=== PATIENT | female | born 1950 | race Caucasian/White ===

== ENCOUNTER 2024-11-19 13:02 | Outpatient (REF) | payer MEDICARE, OTHER, SELFPAY ==
--- OUTSIDE RECORDS SUMMARY | 2024-11-19 14:09 | XMS_ITS ---
Continuity of Care Document (CCD) Created on: November 19, 2024 Kaila Bruce External Reference #: [id number] : 1950 Sex: Female Author Organization [facility] Address [address] [place] [address] Phone [phone] Care Team Providers Care Motorcycle Engine Assembler Name Role Phone Samy Robles M.D. Care Team Information Recei melany [phone] Problems Active Problems Provider Date Thyroid nodule Leighton Ratliff M.D. Onset: Essential hypertension Leighton Ratliff M.D. Ons et: 09/22/2022 Osteoarthritis Leighton Ratliff M.D. Onset: Social History Type Date Description Comments Sex Female Sex Unknown Tobacco Use Start: Unknown Never Smoked Cigarettes ETOH Use Occasionally consumes alcoho l Allergies and adverse reactions Active Allergies Criticality Reaction Severity Comments Date Percocet Unable to assess criticality 09/22/2022 Medications Active Medications SIG Qnty Indications Ordering Provider Date Gfzclghqvpqhphamsgh44 mg Tablets Take 1 Tablet By Mouth Every Day Unknown Bromfenac Sodium (Once-Daily)0.09% Solution Instill 1 Drop In Right Eye Every Day To Surgical Eye X 6 Weeks Postoperatively. Juno Sevilla M.D. Vital Signs Date Vital Result Comment 09/22/2022 2:45pm BP Systolic 122 mmHg BP Diastolic 90 mmHg Heart Rate 81 /min Height 64 inches 5'4 Weight 115.00 lb BMI (Body Mass Index) 19.7 kg/m2 Medical Devices Description No Information Available Encounters Type Date Location Provider Dx Diagnosis Office Visit 09/22/2022 2:45p Main Office Leighton Ratliff M.D. I10 Essential (primary) hypertension E04.1 Nontoxic single thyr oid nodule Assessments Date Code Description Provider 09/22/2022 I10 Essential hypertension Leighton Ratliff M.D. 09/22/2022 E04.1 Thyroid nodule Leighton sanabria M.D. Plan of Treatment No Information Available Functional Status Description No Information Available Mental Status Description No Information Available Referrals Description No Information Available
--- OUTSIDE RECORDS SUMMARY | 2024-11-19 14:09 | XMS_ITS | Encounter Summary ---
Author Organization [facility] Address [address] [place] [address] Phone Care Team Providers Care Drugless Physician Name Role Phone Samy Robles MD Primary Care Provider + [phone] Encounter Details Date Type Department Care Team (Late st Contact Info) Description 02/18/2017 Ancillary Orders Virtual Department [address] [place] [address] Harmony Wiseman MD [address] [address] Visit for screening mammogram Social History Tobacco Use Types Packs/Day Years Used Date Smoking Tobacco: Never Comments Unknown Sex and Gender Information Value Date Recorded Sex Assigned at Female 05/12/2022 10:32 AM EST Legal Sex Female 5:14 PM EST Gender Identity Female 05/12/2022 10:32 AM EST Sexual Orientation Not on file documented as of this encounter Plan of Treatment Upcoming Encounters Date Type Department Care Team (Late st Contact Info) Description 06/18/2025 11:40 AM EST Office Visit [facility] [address] [place] [address] Lacy Sanchez MD [address] [address] documented as of this encounter Results * BI MAMMOGRAM SCREENING WITH TOMOSYNTHESIS WITH CAD (BILATERAL) (05/05/2017 11:43 AM EST) Anatomical Region Laterality Modality Breast Left, Breast Right, Breast Bilateral Bila teral Mammography 05/05/2017 11:4 8 AM EST Impressions 05/05/2017 11:52 AM EST Stable appearance relative to prior imaging. No findings suggestive of malignancy are seen. BI-RADS CATEGORY: 2 - Benign finding. DENSITY: There are scattered fibroglandular densities. POS - [id number] Narrative 05/05/2017 11:52 AM EST Full-field digital mammography is obtained with computer-aided detection. Comparison with prior imaging from 03/14/2016 is made with older imaging dating back as far as 01/10/2009 also reviewed. There is scattered fibroglandular density evident in the breasts. In addition to 2-D C view imaging, tomosynthesis images are obtained in two projections of each breast. There are solitary macrocalcifications in each breast which are unchanged.. No dominant soft tissue mass of concern, suspicious cluster of calcifications, significant interval skin changes, or architectural distortion is identified. Procedure Note Aureliano Barboza MD - 05/05/2017 Full-field digital mammography is obtained with computer-aided detection.Comparison with prior imaging from 03/14/2016 is made with older imagingdating back as far as 01/10/2009 also reviewed. There is scattered fibroglandular density evident in the breasts. Inaddition to 2-D C view imaging, tomosynthesis images are obtained in twoprojections of each breast. There are solitary macrocalcifications in each breast which areunchanged.. No dominant soft tissue mass of concern, suspicious clusterof calcifications, significant interval skin changes, or architecturaldistortion is identified. IMPRESSION: Stable appearance relative to prior imaging. No findings suggestive ofmalignancy are seen. BI-RADS CATEGORY: 2 - Benign finding. DENSITY: There are scattered fibroglandular densities. POS - [id number] Harmony Wiseman MD IM MG EXAMS Final Result documented in this encounter Visit Diagnoses Diagnosis Visit for screening mammogram Visit for screening mammogram documented in this encounter Care Teams Drugless Physician Relationship Specialty Start Date End Date Samy Robles MD [address] [place] [address] PCP - General 10/29/13 documented as of this encounter Additional Source Comments The information contained in this document represents components of the legal health record. It is not the complete legal health record.[facility]
--- OUTSIDE RECORDS SUMMARY | 2024-11-19 14:09 | XMS_ITS | Clinical Summary ---
Author Organization [facility] Address [address] [place] [address] Care Team Providers Care Machine Long Goods Helper Name Role Phone Unavailable Primary Care Provider Unavailabl e Medications hydroCHLOROthiaz kortney 25 MG tablet TAKE 1 TABLET (25 MG TOTAL) BY MOUTH 1 (ONE) TIME EACH DAY 90 tablet 3 01/09/2022 Active Family History Medical History Relation Comments Diabetes Father Cancer Mother breast cancer Hypertension Mother Kidney disease Mother sister - dialysi s Diabetes Sibling 1 brother Heart disease Sibling 2 2 brothers - [place] Relation Status Comments Father Mother Sibling 1 Sibling 2 Social History Tobacco Use Types Packs/Day Years Used Date Smoking Tobacco: Never Alcohol Use Standard Drinks/Week Comments Yes 0 (1 standard drink = 0.6 oz pure alcohol) Alcoholic Drinks/day: Occasional social drink Comments Unknown Sex and Gender Information Value Date Recorded Sex Assigned at Not on file Legal Sex Female 5:12 PM EST Gender Identity Not on file Sexual Orientation Not on file Plan of Treatment Health Maintenance Due Date Last Done Comments Breast Cancer Screening 1950 Colorectal Cancer Screening: Annual FOBT 2001 Colorectal Cancer Screening: Colonoscopy 2001 Colorectal Cancer Screening: Sigmoidoscopy 2001 Pneumococcal Vaccine: 50+ Ye ars (1 of 1 - PCV) 2002 Influenza Vaccine (#1) 2024 Hepatitis B Vaccine Aged Out No longe r eligible based on patient's age to complete this topic
== END 2024-11-19 13:03 | disposition home or self-care (01) ==
LOC: HO.SH 13:02
PROVIDERS: Visit Provider Internal Medicine
DX: Z01.118 Encounter for examination of ears and hearing with other abnormal findings (principal); H90.3 Sensorineural hearing loss, bilateral
CPT/HCPCS: 92557; 92567

== ENCOUNTER 2025-03-21 14:23 | Outpatient (REF) | payer MEDICARE, OTHER, SELFPAY ==
[2025-03-21 18:44] LABS: Appearance Urine Clear; Glucose Urine UA Negative (Negative); PH 7.0 (5.0-9.0); Specific Gravity - Urine 1.015 (1.005-1.025)
== END 2025-03-21 14:24 | disposition home or self-care (01) ==
LOC: HO.WFDLDS 14:23
PROVIDERS: Visit Provider Internal Medicine
DX: Z00.00 Encounter for general adult medical examination without abnormal findings (principal); R35.1 Nocturia; I10 Essential (primary) hypertension; M81.0 Age-related osteoporosis without current pathological fracture; E04.1 Nontoxic single thyroid nodule
CPT/HCPCS: 81003; 87086; 96127; 99387

== ENCOUNTER 2025-03-21 14:23 | Outpatient (AMB) | payer MEDICARE, OTHER, SELFPAY ==
--- NOTE | 2025-03-21 14:41 | A.OFFPC_ITS ---
Vital Signs 03/21/25 14:48 Height 5 ft 2.2 in Weight 116 lb 8 oz BMI 21.2 BP 122/84 Blood Pressure Location Lt brachial Position Sitting Respiration 14 Pulse 79 Pulse Source Pulse Oximeter Pulse Oximetry (%) 98 Oxygen Delivery Method Room Air Intake Visit Reasons: CPE requesting Allergies acetaminophen (From Percocet) Allergy (Severe, Verified 03/21/25 14:45) Hallucinations oxycodone (From Percocet) Allergy (Severe, Verified 03/21/25 14:45) Hallucinations Tobacco use date assessed: 03/21/25 Fall risk assessment: No Falls in past year Last assessed Fall Risk: 03/21/25 Dental Screening Dental Screen Date: 03/21/25 Did you have a dental visit in the last 12 months?: Yes Did you have a dental problem in the last 6 months where you did not have access to dental care?: No Was dental information given to patient?: Patient has dentist HPI HPI Comments History of Present Illness Details The patient is a 74 year old female with a past medical history of hypertension, thyroid nodule, insomnia, hemmorhoids, rectocele, osteoporosis rpesenting to establish care/physical exam. Transfer from [facility]. Last CPE 12/2023 CV: on hctz. saw pvc previously, Dr Lockhart. Had 2023 coronary calcium. Underwent cardiac testing which reassuring b/c of family history Endocrine: Follows with Dr Sanchez for thyroid and osteoporosis. Reports increased urination, especially nocturia. REcent uti without dysuria. MSK Bilateral hip replacement right 2022, left 2005 Osteoporosis-on actonel 35 mg weekly History of melanoma 2022-[facility]. Bilateral cataracts-Dr Shannen Dominguez/[facility] Mammo 12/2023-biopsy benign. Repeated in December 2024. Follows with [facility] breast. s/p hysterectomy Flu shot ROS see HPI PHYSICAL EXAM: GENERAL: Alert and oriented x 3. NAD EYES: EOMI. Anicteric. HENT: Moist mucous membranes. No scleral icterus. No cervical lymphadenopathy. LUNGS: Clear to auscultation bilaterally. CARDIOVASCULAR: Regular rate and rhythm. No murmur. No JVD. ABDOMEN: Soft, non-tender +bs EXTREMITIES: No edema. Non-tender. SKIN: No rashes or lesions. Warm. NEUROLOGIC: No focal neurological deficits. CN II-XII grossly intact PSYCHIATRIC: Cooperative. Appropriate mood and affect PFSH Family History Other Bilateral cataracts H/O: hysterectomy History of appendectomy History of right hip replacement History of total left hip replacement Social History Housing: House e-Cigarette/Vaping Use: Never Used Second Hand Smoke Exposure: No service: No Current occupational status: employed and retired Cognitive needs: No Hearing needs: No Vision needs: Yes (glasses) Questionnaire PHQ-9 Over the last 2 weeks, how often have you been bothered by any of the following problems? 1. Little interest or pleasure in doing things: not at all 2. Feeling down, depressed, or hopeless: not at all 3. Trouble falling or staying asleep, or sleeping too much: not at all 4. Feeling tired or having little energy: not at all 5. Poor appetite or overeating: not at all 6. Feeling bad about yourself - or that you are a failure or have let yourself or your family down: not at all 7. Trouble concentrating on things, such as reading the newspaper or watching television: not at all 8. Moving or speaking so slowly that other people could have noticed. Or the opposite - being so fidgety or restless that you have been moving around a lot more than usual: not at all 9. Thoughts that you would be better off or of hurting yourself in some way: not at all Total score: 0 Depression Screening Interpretation: Negative Depression Screening Done: Yes 78387 - PHQ-9 Billing: Yes Source: Developed by Drs. Clint Cox, Concha Manriquez, Larry Thompson and colleagues, with an educational kaz from [employer]. Thrive Questionnaire Date Thrive assessed: 03/15/25 I am a: Patient What is your living situation today?: I have a steady place to live Within the past 12 months, did the food you bought not last and you didn't have the money to get more?: Never true Within the past 12 months, did you worry whether your food would run out before you got money to buy more?: Never true Do you have trouble paying for medicines?: No Do you have trouble getting transportation to medical appointments?: No Do you have trouble paying your heating and electricity bill?: No Do you have trouble taking care of your child, family member or friend?: No Do you have trouble with day-to-day activities such as bathing, preparing meals, shopping, managing finances, etc.?: No Are you currently unemployed and looking for a job?: No Are you interested in more education?: No Please select the resources that you would like help with: None Currently or been in a relationship where the following occur: No concerns reported THRIVE Score: 0 AUDIT C Alcohol Use Questionnaire (AUDIT-C) 1. How often do you have a drink containing alcohol?: 2-3 times a week 2. How many drinks containing alcohol do you have on a typical day when you are drinking?: 1 or 2 3. How often do you have six or more drinks on one occasion?: Never Total Score: 3 KYLAH-7 AMB Questionnaire KYLAH-7 Feeling nervous, anxious, or on edge: 0 = Not at all Not being able to stop or control worryin = Not at all Worrying too much about different things: 0 = Not at all Trouble relaxin = Not at all Being so restless that it is hard to sit still: 0 = Not at all Becoming easily annoyed or irritable: 0 = Not at all Feeling afraid as if something awful might happen: 0 = Not at all Total KYLAH-7 score (0-4 normal; 5-9 mild; 10-14 moderate; 15-21 severe): 0 Source: Developed by Drs. Clint Cox, Concha Manriquez, Larry Thompson and colleagues, with an educational kaz from [employer]. Physical exam (Primary Care) Vital Signs: Last Vital Signs Pulse 79 03/21/25 14:48 Resp 14 03/21/25 14:48 BP 122/84 03/21/25 14:48 Pulse Ox 98 03/21/25 14:48 Oxygen Delivery Method Room Air 03/21/25 14:48 BMI result Body Mass Index 21.2 Tobacco/Smoking Status: Tobacco use Status Tobacco use date assessed 03/21/25 03/21/25 14:51 e-Cigarette/Vaping Use Never Used 03/21/25 14:51 PHQ-9: PHQ-9 Score PHQ-9: Total score 0 03/21/25 15:04 Depression Screening Interpretation: Negative Thrive Assessment: Date of Thrive Assessment Date Thrive assessed 03/15/25 03/21/25 14:43 Currently or been in a relationship where the following occur: No concerns reported Coding Level of Care Code New Pt Prev Care >65yr (27213) Diagnoses Physical exam Z00.00 Thyroid nodule E04.1 Hypertension, unspecified type I10 Hypertension type: unspecified Additional Codes PHQ-9 - 66758 - PHQ-9 Billing: Yes ([id number]) Assessment & Plan Assessment & Plan (1) Physical exam: Code(s): Z00.00 - Encounter for general adult medical examination without abnormal findings (2) Thyroid nodule: Code(s): E04.1 - Nontoxic single thyroid nodule Category: Medical (3) Hypertension: Code(s): I10 - Essential (primary) hypertension Category: Medical Qualifiers: Hypertension type: unspecified Qualified Code(s): I10 - Essential (primary) hypertension Plan 74 year old female presenting to [facility] care/CPE Past medical surgical, social reviewed Preventive measures for age discussed HTN-controlled on hctz Osteoporosis-on fosamax Nocturia, polyuria-check ua/ucx. referral urogyn Orders: Orders Urine Culture 03/21/25 R35.1 - Nocturia UA and rflx microscopic 03/21/25 R35.1 - Nocturia Referrals Urogynecology Referral R35.1 - Nocturia
--- OUTSIDE RECORDS SUMMARY | 2025-03-21 14:47 | XMS_ITS | Encounter Summary ---
Author Organization [facility] Address [facility] [address] [place] [address] Phone Care Team Providers Care Talent Sourcing Specialist Name Role Phone Samy Robles MD Primary Care Provider [phone] Encounter Details Date Type Department Care Team ([facility] st Contact Info) Description 12/07/2022 Transcribe Orders [facility] [address] [facility] [address], [address] [place] [address] Mohamud Luong MD [address] [address] [email or web address] Social History Tobacco Use Types Packs/Day Years Used Date Smoking Tobacco: Never Smokeless Tobacco: Never Alcohol Use Standard Drinks/Week Comments Yes 5 (1 standard drink = 0.6 oz pur e alcohol) Education Answer Date Recorded Are you interested in more education? Not on amelia e 08/26/2022 Are you concerned about learning? Not on file 08/26/2022 No 08/26/2022 No 08/26/2022 Digital Access Answer Date Recorded No 09/23/2022 No 09/23/2022 Reliable internet access at home? Not on file 09/23/2022 Device with a working camera? Not on file Comments No Sex and Gender Information Value Date Recorded Sex Assigned at Female 05/12/2022 10:32 AM EST Legal Sex Female 5:14 PM EST Gender Identity Female 05/12/2022 10:32 AM EST Sexual Orientation Not on file documented as of this encounter Plan of Treatment Upcoming Encounters Date Type Department Care Team (Late st Contact Info) Description 06/18/2025 11:40 AM EST Office Visit [facility] [address] [place] [address] Lacy Sanchez MD [address] [address] [email or web address] documented as of this encounter Visit Diagnoses Not on filedocumented in this encounter Care Teams Talent Sourcing Specialist Relationship Specialty Start Date End Date Samy Robles MD [address] [place] [address] PCP - General 10/29/13 documented as of this encounter Additional Source Comments The information contained in this document represents components of the legal health record. It is not the complete legal health record.[facility]
--- OUTSIDE RECORDS SUMMARY | 2025-03-21 14:47 | XMS_ITS | Encounter Summary ---
Author Organization [facility] Address [address] [place] [address] [place] [address] Phone Care Team Providers Care Vehicle Care Specialist Name Role Phone Samy Robles MD Primary Care Provider + [phone] Reason for Referral * MRI/CAT Scan - Closed Specialty Diagnoses / Procedures Referred By Lissette paniagua Referred To Contact Radiology Diagnoses Pre-op evaluation Procedures NC Stress Result for Nuclear Stress Test Ria Pink CNP Phone: tel: fax: [email or web address] Referral ID Status Reason Start Date Expiration Date Visits Re quested Visits Authorized [id number] Closed 01/11/2023 1 1 Encounter Details Date Type Department Care Team ([facility] st Contact Info) Description 01/11/2023 Ancillary Orders Non-Invasive Cardiology [address] [place] [address] Ria Pink CNP [address] [address] [email or web address] Pre-op evaluation Social History Tobacco Use Types Packs/Day Years [...] 11:40 AM EST Office Visit [facility] [address] [place] [address] Lacy Sanchez MD [address] [place] [address] [email or web address] documented as of this encounter Results * NC Stress Result for Nuclear Stress Test (01/11/2023 11:21 AM EDT) Max BP Systolic 180 mmHg [facility] Max BP Diastolic 80 mmHg [facility] Max HR 155 BPM [facility] Resting HR 67 BPM [facility] Resting BP Systolic 140 mmHg [facility] Resting BP Diastolic 80 mmHg [facility] Peak METS 13.4 METS [facility] Peak HR 153 BPM [facility] Peak BP Systolic 150 mmHg [facility] Peak BP Diastolic 70 mmHg [facility] Anatomical Region Laterality Modality Heart Other 01/11/2023 10:2 8 AM EDT 01/11/2023 11:19 AM EDT Narrative 01/11/2023 11:45 AM EDT Response to Stress The patient exercised for minutes seconds, achieving 13.4 METS at peak exercise. Baseline blood pressure was 140/80 mmHg, and baseline heart rate was 67 bpm. Peak blood pressure was 150/70 mmHg. The patient achieved a peak heart rate of 153 bpm, which is% of their maximum predicted heart rate. Rate pressure product was [address]. REPORT - Pt exercised for 11:35 min on a ROMA protocol achieving 13.4 METS. Test terminated due to fatigue. Baseline resting HR was 63. Max heart rate achieved was 155 (103% MPHR). 1. EKG - Baseline EKG showed normal sinus rhythm, 1st degree AV block, RBBB. No ischemic EKG changes noted during exercise. 2. SYMPTOMS - no chest pain 3. EXERCISE PHYSIOLOGY - normal BP response to exercise. Excellent functional capacity for age. 4. ARRHYTHMIAS - occasional PVCs Conclusion - normal stress test with no ischemic EKG changes and no chest pain reported. Nuclear images pending and will be reported separately. See attached stress report for full details. Kingston Roblero NP . Ria Pink COMPENSATION ANALYST CV NM CARDIAC Final Resul t documented in this encounter Visit Diagnoses Diagnosis Pre-op evaluation Pre-op evaluation documented in this encounter Care Teams Vehicle Care Specialist Relationship Specialty Start Date End Date Samy Robles MD [address] [place] [address] PCP - General 10/29/13 documented as of this encounter Additional Source Comments The information contained in this document represents components of the legal health record. It is not the complete legal health record.[facility]
--- OUTSIDE RECORDS SUMMARY | 2025-03-21 14:47 | XMS_ITS | Encounter Summary ---
Author Organization [facility] Address [facility] [address] [place] [address] Phone Care Team Providers Care Aluminum Siding Installer Name Role Phone Samy Robles MD Primary Care Provider + [phone] Encounter Details Date Type Department Care Team (Late st Contact Info) Description 01/16/2023 Procedure Pass [facility] PERIOPERATIVE DEPT [address] [place] [address] Social History Tobacco Use Types Packs/Day Years Used Date Smoking Tobacco: Never Passive Smoke Exposure: Never Smokeless Tobacco: Never Alcohol Use Standard [...] with a working camera? Not on file Intimate Partner Violence Answer Date R ecorded Are you denied basic needs s uch as food, clothing, or medical care? No 01/16/2023 In the past 12 months have y ou been in a relationship with a person who hurts, threatens, or tries to control you? No 01/16/2023 Are you denied basic needs s uch as food, clothing, or medical care? No 01/16/2023 In the past 12 months have y ou been in a relationship with a person who hurts, threatens, or tries to control you? No 01/16/2023 Comments No Sex and Gender Information Value Date Recorded Sex Assigned at Female 05/12/2022 10:32 AM EST Legal Sex Female 5:14 PM EST Gender Identity Female 05/12/2022 10:32 AM EST Sexual Orientation Not on file documented as of this encounter Functional Status * Calculated C-SSRS Risk Score (Lifetime/Recent) Answer Date of Assessment Author No Risk Indicated 01/16/2023 8:18 PM EDT Tereza Beach i, RN * [place] Suicide Severity Rating Scale (Screener/Recent Self-Report) Question Answer Date of Assessment Author 1. Wish to be (Past 1 Month) No 023 8:18 PM EDT Tereza Lowe RN 2. Non-Specific Active Suici maddie Thoughts (Past 1 Month) No 01/16/2023 8:18 PM EDT Josh Lowe RN 6. Suicidal Behavior (Lifetime) No 8:18 PM EDT Tereza Lowe RN documented as of this encounter Plan of Treatment Upcoming Encounters Date Type Department Care Team (Late st Contact Info) Description 06/18/2025 11:40 AM EST Office Visit [facility] [address] [place] [address] Lacy Sanchez MD [address] [place] [address] [email or web address] documented as of this encounter Visit Diagnoses Not on filedocumented in this encounter Care Teams Aluminum Siding Installer Relationship Specialty Start Date End Date Samy Robles MD [address] [place] [address] PCP - General 10/29/13 documented as of this encounter Additional Source Comments The information contained in this document represents components of the legal health record. It is not the complete legal health record.[facility]
--- OUTSIDE RECORDS SUMMARY | 2025-03-21 14:47 | XMS_ITS | Clinical Summary ---
Author Organization [facility] Facility Address [address] [place] [address] Care Team Providers Care Slab Conditioner Supervisor Name Role Phone Unavailable Primary Care Provider [...] Heart disease Sibling 2 2 brothers - [place] Relation Status Comments Father Mother Sibling 1 [...]
--- OUTSIDE RECORDS SUMMARY | 2025-03-21 14:47 | XMS_ITS | Encounter Summary ---
Author Organization [facility] Address [address] [place] [address] Phone Care Team Providers Care Grinder Machine Knife Setter Name Role Phone Samy Robles MD Primary Care Provider + [phone] Encounter Details Date Type Department Care Team (Late st Contact Info) Description 01/16/2023 Ancillary Orders [facility] Department of Orthopaedic Surgery, Arthroplasty Service [address] [facility], 3rd Floor, [address] [place] [address] Mohamud Luong MD [address] [address] [email or web address] Pain Social History Tobacco Use Types Packs/Day Years [...] PM EDT Tereza Beach i, RN * [place] Suicide Severity Rating Scale (Screener/Recent Self-Report) Question Answer Date of Assessment Author 1. Wish to be (Past 1 Month) No 023 8:18 PM EDT Tereza Lowe RN 2. Non-Specific Active Suici maddie Thoughts (Past 1 Month) No 01/16/2023 8:18 PM EDT Josh Lowe RN 6. Suicidal Behavior (Lifetime) No 3 8:18 PM EDT Tereza Lowe RN documented as of this encounter Plan of Treatment Upcoming Encounters Date Type Department Care Team (Late st Contact Info) Description 06/18/2025 11:40 AM EST Office Visit [facility] [address] [place] [address] Lacy Sanchez MD [address] [place] [address] [email or web address] documented as of this encounter Results * XR HIP 1 VW RIGHT (01/16/2023 2:46 PM EDT) Anatomical Region Laterality Modality Hip Right Radiographic Nikki ging 01/16/2023 2:50 PM EDT Impressions 01/16/2023 2:51 PM EDT Status post right total hip arthroplasty. No distal fracture on single view. Narrative 01/16/2023 2:51 PM EDT XR HIP 1 VW RIGHT COMPARISON: XR HIP 2 VW RIGHT PLUS PELVIS FINDINGS: Patient is postoperative status post right total hip arthroplasty, with noncemented femoral component and at least one supplemented acetabular fixation screw. No distal fracture on single view. Expected postoperative soft tissue gas. Remaining pelvis is partially obscured and unchanged. Procedure Note Mikel Rojas MD - 01/16/2023 XR HIP 1 VW RIGHT COMPARISON: XR HIP 2 VW RIGHT PLUS PELVIS FINDINGS: Patient is postoperative status post right total hip arthroplasty, withnoncemented femoral component and at least one supplemented acetabularfixation screw. No distal fracture on single view. Expected postoperativesoft tissue gas. Remaining pelvis is partially obscured and unchanged. IMPRESSION: Status post right total hip arthroplasty. No distal fracture on singleview. Mohamud Luong MD IMG XR PELVIS Final Resul t documented in this encounter Visit Diagnoses Diagnosis Pain Generalized pain documented in this encounter Care Teams Grinder Machine Knife Setter Relationship Specialty Start Date End Date Samy Robles MD [address] [place] [address] PCP - General 10/29/13 documented as of this encounter Additional Source Comments The information contained in this document represents components of the legal health record. It is not the complete legal health record.[facility]
--- OUTSIDE RECORDS SUMMARY | 2025-03-21 14:47 | XMS_ITS | Clinical Summary ---
Author Organization [facility] Address Critical access hospital [employer] [facility] [address] [place] [address] Phone Care Team Providers Care Speed Winder Name Role Phone Samy Robles MD Primary Care Provider [phone] Allergies Active Allergy Reactions Criticality Noted Date Comments Percocet (Oxycodone-Acetaminophen) 0 01/01/2006 Medications hydroCHLOROthiazi de (HYDRODIURIL) 25 MG tablet Take 25 mg by mouth daily. 2 Active diphenhydrAMINE-a cetaminophen (TYLENOL PM) 25-500 mg Tab Active zolpidem (AMBIEN) 5 MG tablet Take 5 mg by mouth. Active calcium carbonate-vitamin D3 1,250 mg (500 mg elemental)-400 units per tablet Take 1 tablet by mouth daily. Active amoxicillin (AMOXIL) 500 MG capsule Take 4 capsules (2,000 mg total) by mouth once as needed. Take 4 capsules one hour prior to any dental work or procedures. 12 capsule 3 Active risedronate (ACTONEL) 35 MG tabletIndications :Age-related osteoporosis without current pathological fracture TAKE 1 TAB EVERY 7 DAYS. WITH WATER ON EMPTY STOMACH, NOTHING BY MOUTH OR LIE DOWN FOR NEXT 30 MINS. 12 tablet 1 5 Active Active Problems Problem Noted Date Diagnosed Date History of melanoma 12/26/2023 Hyperlipidemia 12/26/2023 S/P total right hip arthroplasty 01/16/2023 Primary hypertension 09/22/2022 Osteoarthritis of hip 05/10/2012 Overview (06/21/2014): Osteoarthritis of hip History of total hip replacement 05/10/2012 Overview (06/21/2014): Total replacement of hip Osteoporosis Assessment & Plan (12/26/2023 5:41 PM EDT): 73 y.o. post-menopausal woman w/ osteoporosis on bone density. Hx traumatic hand fracture, father w/ hx hip fracture. Getting reasonable calcium intake through diet/supplement. Last vitamin D level was @ target. She is quite active & not at high risk for falls. Reviewed normal bone physiology across the lifespan. Reviewed role of adequate calcium & vitamin D, weight-bearing exercise, avoiding falls and pharmacologic rx with risks/benefits. Advised her to refer to UpToDate patient information @ calcium & vitamin D & prevention and treatment of osteoporosis, beyond the basics for additional information. 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 She is a candidate for pharmacologic rx. She would be interested in resuming actonel, which she had been on in the past & tolerated. Will check labs. Assuming all ok, will send in rx for actonel. Thyroid cyst Assessment & Plan (12/26/2023 5:42 PM EDT): Discussed cysts are typically benign, do not require FNA. Will obtain/review most recent thyroid ultrasound. Immunizations Immunization Administration Dates Next Due Influenza High-Dose Quadriva lent Preservative Free IM 01/17/2023(Deferred: Patient Refused) Family History Medical History Relation Comments CV disease Brother 1 At age 50, he swartz d quintuple bypass after sudden heart attack. CV disease Brother 2 Had a heart gisel ck around age 63 yrs Diabetes Brother 3 Adult onset Breast cancer Cousin 1 maternal Breast cancer Cousin 2 maternal Clotting disorder Father He had too msn y white(?) blood cells and would bleed profusely if cut. It was not a problem until he was in his 80s Diabetes Father Adult onset Hip fracture Father age 92 Parkinson's disease Father Breast cancer Maternal Aunt Breast cancer Mother Cancer Mother of breast c ancer at age 48 yrs in 1974 Relation Status Comments Brother 1 Brother 2 Brother 3 Cousin 1 Cousin 2 Father Maternal Aunt Mother Social History Tobacco Use Types Packs/Day Years Used Date Smoking Tobacco: Never Passive Smoke Exposure: Never Smokeless Tobacco: Never Tobacco Cessation:Counseling Given: Not Answered Alcohol Use Standard Drinks/Week Comments Yes 5 [...] AM EST Sexual Orientation Not on file Last Filed Vital Signs Vital Sign Reading Time Taken Comments Blood Pressure 130/64 12/26/2023 11:27 AM EDT Pulse 75 12/26/2023 11:27 AM EDT Temperature 36.2 C (97.2 F) 12/26/2023 11:27 AM EDT Respiratory Rate 13 12/26/2023 11:27 AM EDT Oxygen Saturation 98% 12/26/2023 11:27 AM EDT Inhaled Oxygen Concentration - - Weight 54.5 kg (120 lb 3.2 oz) 12/26/2023 11:27 AM EDT Height 164.5 cm (5' 4.75 ) 12/26/2023 11:27 AM E DT Body Mass Index 20.16 12/26/2023 11:27 AM EDT Plan of Treatment Upcoming Encounters Date Type Department Care Team (Late st Contact Info) Description 06/18/2025 11:40 AM EST Office Visit [facility] [address] [place] [address] Lacy Sanchez MD [address] [place] [address] [address] [place] [address] [email or web address] [facility] Maintenance Due Date Last Done Comments Adult Td,Tdap Booster 1952 LIPID PANEL 1952 DEPRESSION SCREENING 1964 HEPATITIS C SCREENING 1970 COLOGUARD 1997 COLONOSCOPY 1997 COLORECTAL CANCER SCREENING 1997 FIT TEST 1997 FOBT 1997 SIGMOIDOSCOPY 1997 VIRTUAL COLONOSCOPY 1997 PNEUMOCOCCAL VACCINES (50+ years) (1 of 1 - PCV) 2002 ZOSTER VACCINES (2 of 3) 09/18/2012 07/24/2012 MAMMOGRAM 11/08/2020 11/08/2018, 05/05/2017 BLOOD PRESSURE 06/27/2024 12/26/2023 INFLUENZA VACCINE (#1) 2024 POTASSIUM LEVEL 12/26/2024 12/27/2023, 01/17/2023, 12/26/2022 COVID-19 VACCINE (1 - 2024-2 6 season) 2024 RSV VACCINE (1 - 1-dose 75+ series) 2027 OSTEOPOROSIS SCREENING INITI AL (ONE-TIME) Completed 06/07/2023 SMOKING STATUS SCREENING (On ce After 26 Yrs) Completed 01/30/2024 HEPATITIS A VACCINES Aged Out No long er eligible based on patient's age to complete this topic HIB VACCINES Aged Out No longer eligi ble based on patient's age to complete this topic MENINGOCOCCAL VACCINES (ACWY) Aged Out No longer eligible based on patient's age to complete this topic MENINGOCOCCAL VACCINES (B) Aged Out N o longer eligible based on patient's age to complete this topic Medical Devices Implanted Type Area Shaker Screen Operator Device Identifier Shelf Expiration Date Model / Serial / Lot Hip 36mm 2.5 Implant Hd Alumina Ceramic Modular Delta Biolox Minus 04 - [id number] Implanted:Qty: 1 on 01/16/2023 by Mohamud Luong MD at [facility] STANDARD Right: Hip [employer] [id number] 09/30/2027 6570-0-43 6 / / [id number] Description:The implant type , laterality (when applicable), size, and expiration date have been visually and verbally confirmed by the Surgeon, Circulating RN and Scrub Personnel. Joint Left: Hip Screw Bone 6.5x20mm Low Profile - [id number] Implanted:Qty: 1 on 01/16/2023 by Mohamud Luong MD at [facility] Right: Hip [employer] [id number] 02/15/2027 7914-9291 / / [id number] Description:The implant type , laterality (when applicable), size, and expiration date have been visually and verbally confirmed by the Surgeon, Circulating RN and Scrub Personnel. Hip Acetabular 52e Shell Trident Ii Tritanium 3d Surface Clusterhole - [id number] Implanted:Qty: 1 on 01/16/2023 by Mohamud Luong MD at [facility] Right: Hip [employer] [id number] 12/21/2027 702-04-52 E / / [id number] Description:The implant type , laterality (when applicable), size, and expiration date have been visually and verbally confirmed by the Surgeon, Circulating RN and Scrub Personnel. Acetabular Insert 5.9x36mm 0deg Trident X3 Polyethylene - [id number] Implanted:Qty: 1 on 01/16/2023 by Mohamud Luong MD at [facility] Right: Hip [employer] [id number] 10/25/2027 723-00-36 E / / [id number] Description:The implant type , laterality (when applicable), size, and expiration date have been visually and verbally confirmed by the Surgeon, Circulating RN and Scrub Personnel. Screw Bone 6.5x20mm Low Profile - [id number] Implanted:Qty: 1 on 01/16/2023 by Mohamud Luong MD at [facility] Right: Hip [employer] [id number] 08/16/2027 6966-9291 / / [id number] Description:The implant type , laterality (when applicable), size, and expiration date have been visually and verbally confirmed by the Surgeon, Circulating RN and Scrub Personnel. Insignia Hip Stem- Standard Offset Implanted:Qty: 1 on 01/16/2023 by Mohamud Luong MD at [facility] Right: Hip [employer] 09/26/2027 [id number] / / [id number] Description:The implant type , laterality (when applicable), size, and expiration date have been visually and verbally confirmed by the Surgeon, Circulating RN and Scrub Personnel. Procedures Procedure Name Priority Date/Time Associated Diagnosis Comments COMPREHENSIVE METABOLIC PANEL (CMP) Routine 12/27/2023 9:43 AM EDT Age-related osteoporosis without current pathological fracture HM DEXA SCAN Routine 06/07/2023 1:31 PM EST BI MAMMOGRAM SCREENING WITH TOMOSYNTHESIS WITH CAD (BILATERAL) Routine 11/08/2018 7:50 AM EDT Breast screening from Last 3 Months or Most Recently Relevant to Health Maintenance Results * Comprehensive metabolic panel (12/27/2023 9:43 AM EDT) SODIUM 137 133 - 146 mmol/L [facility] POTASSIUM 3.8 3.3 - 5.1 mmol/L [facility] CHLORIDE 99 96 - 108 mmol/L [facility] CO2 26 21 - 35 mmol/L [facility] BUN 16 6 - 19 mg/dL [facility] CREATININE 0.60 0.5 - 1.5 mg/dL [facility] GLUCOSE 92 70 - 99 mg/dL [facility] ALBUMIN 4.1 3.9 - 4.8 g/dL [facility] TOTAL PROTEIN 7.0 6.5 - 8.0 g/dL [facility] CALCIUM 9.4 8.4 - 10.3 mg/dL [facility] ALKALINE PHOSPHATASE 62 39 - 117 U/L [facility] TOTAL BILIRUBIN 0.5 0.0 - 1.2 mg/dL [facility] AST 25 0 - 37 U/L [facility] ALT 10 0 - 40 U/L [facility] GLOBULIN 2.9 1 - 4.8 g/dL [facility] EGFR 96 >59 mL/min/1.7 3m2 [facility] Comment:Estimated glomerular filtration rate calculated using the CKD-EPI refit equation. ANION GAP 16 10 - 20 mmol/L [facility] Blood 12/27/2023 9:43 AM EDT 12/27/2023 9:47 AM EDT Lacy Sanchez MD LAB BLOOD BKR ORDERABL ES Final Result [address] [address] * DEXA SCAN (06/07/2023 1:31 PM EST) Historical Provider HEALTH MAINTENANCE Final Result * BI MAMMOGRAM SCREENING WITH TOMOSYNTHESIS WITH CAD (BILATERAL) (11/08/2018 7:50 AM EDT) Anatomical Region Laterality Modality Breast Left, Breast Right, Breast Bilateral Bila teral Mammography 11/08/2018 8:0 5 AM EDT Impressions 11/08/2018 8:07 AM EDT No mammographic evidence of malignancy. BI-RADS CATEGORY: 2 - Benign finding. DENSITY: There are scattered fibroglandular densities. POS - [id number] Narrative 11/08/2018 8:07 AM EDT Standard digital full-field 2-D C view and two-plane tomographic imaging was performed and compared with multiple prior studies, most recently 05/05/2017, with utilization of computer-aided detection. The breasts are composed of scattered fibroglandular densities. The stromal markings are essentially unchanged in overall appearance and distribution. No dominant spiculated mass, suspicious clustered microcalcifications, or focal zone of pathologic skin thickening or retraction are noted to have arisen in the interim. Stable bilateral calcifications. Procedure Note Moy Callahan MD - 11/08/2018 Standard digital full-field 2-D C view and two-plane tomographic imagingwas performed and compared with multiple prior studies, most sqhsrals27/05/2018, with utilization of computer-aided detection. The breasts are composed of scattered fibroglandular densities. Thestromal markings are essentially unchanged in overall appearance anddistribution. No dominant spiculated mass, suspicious clusteredmicrocalcifications, or focal zone of pathologic skin thickening orretraction are noted to have arisen in the interim. Stable bilateralcalcifications. IMPRESSION: No mammographic evidence of malignancy. BI-RADS CATEGORY: 2 - Benign finding. DENSITY: There are scattered fibroglandular densities. POS - [id number] Harmony Giuliana Wiseman MD IMG MG EXAMS Final Result from Last 3 Months or Most Recently Relevant to Health Maintenance Insurance [place] [id number] [facility] [employer] MEDICARE SUPPLEMENT MEDICARE PART A & B [employer] MEDICARE SUPPLEMENT MEDICARE PART A & B [employer] MEDICARE SUPPLEMENT MEDICARE PART A & B [facility] [employer] MEDICARE SUPPLEMENT MEDICARE PART A & B Member Subscriber Plan / Payer ( fective 2017-Present) Name:Kaila Bruce Member ID:[id number] Relation to Subscriber:Self Name:Kaila Bruce Subscriber ID:[id number] Payer ID:[id number] Group ID:Not on file Type:Medicare Address: [facility] [employer] [facility] [address] [place] [id number] [place] [address] EXTENSION MEDICARE SUPPLEMENT MEDICARE PART A & B [facility] EX[employer]ION MEDICARE SUPPLEMENT MEDICARE PART A & B [employer] MEDICARE SUPPLEMENT MEDICARE PART A & B [employer] MEDICARE SUPPLEMENT MEDICARE PART A & B [facility] [employer] MEDICARE SUPPLEMENT Care Teams Speed Winder Relationship Specialty Start Date End Date Samy Robles MD [address] [place] [address] PCP - General 10/29/13 Additional Source Comments The information contained in this document represents components of the legal health record. It is not the complete legal health record.[facility]
--- OUTSIDE RECORDS SUMMARY | 2025-03-21 14:47 | XMS_ITS | Encounter Summary ---
Author Organization [facility] Address [address] [place] [address] Phone Care Team Providers Care Textile Scrap Salvager Name Role Phone Samy Robles MD Primary Care Provider [phone] Encounter Details Date Type Department Care Team (Late st Contact Info) Description 11/17/2017 Ancillary Orders Virtual Department [address] [place] [address] Harmony Wiseman MD [address] [address] Breast screening Social History Tobacco Use Types Packs/Day Years Used Date Smoking Tobacco: Never Smokeless Tobacco: Never Comments No Sex and Gender Information Value [...] AM EST Office Visit [facility] [address] [place] [address] Lacy Sanchez MD [address] [place] [address] documented as of this encounter Results * BI MAMMOGRAM SCREENING WITH TOMOSYNTHESIS WITH CAD (BILATERAL) (11/08/2018 7:50 AM EDT) Anatomical Region Laterality Modality Breast Left, Breast Right, Breast Bilateral Bila teral Mammography 11/08/2018 8:0 5 AM EDT Impressions 11/08/2018 8:07 AM EDT No mammographic evidence of malignancy. BI-RADS CATEGORY: 2 - Benign finding. DENSITY: There are scattered fibroglandular densities. POS - [id number] Narrative 11/08/2018 8:07 AM EDT Standard digital [...] and compared with multiple prior studies, most [id number]/05/2018, with utilization of computer-aided detection. The breasts [...] There are scattered fibroglandular densities. POS - [id number] Harmony Wiseman MD IMG MG EXAMS Final Result documented in this encounter Visit Diagnoses Diagnosis Breast screening Breast screening, unspecified Breast screening Breast screening, unspecified documented in this encounter Care Teams Textile Scrap Salvager Relationship Specialty Start Date End Date Samy Robles MD [address] [place] [address] PCP - General 10/29/13 documented as of this encounter Additional Source Comments The information contained in this document represents components of the legal health record. It is not the complete legal health record.[facility]
--- OUTSIDE RECORDS SUMMARY | 2025-03-21 14:47 | XMS_ITS | Continuity of Care Document ---
Author Organization [facility] Address [address] [facility] [address] [place] [address] Phone [phone] Care Team Providers Care Bisque Grader Name Role Phone Samy Robles M.D. Care Team Information Recei melany [phone] Problems Active Problems Provider Date Thyroid nodule [...] Medications SIG Qnty Indications Ordering Provider Date Vmgdhszwkamffeytsuw07 mg Tablets Take 1 Tablet By Mouth [...]
--- OUTSIDE RECORDS SUMMARY | 2025-03-21 14:47 | XMS_ITS | Encounter Summary ---
Author Organization [facility] Address [address] [place] [address] Phone Care Team Providers Care Zipper Sewing Machine Operator Name Role Phone Samy Robles MD Primary Care Provider + [phone] Encounter Details Date Type Department Care Team (Late st Contact Info) Description 02/18/2017 Ancillary Orders Virtual Department [address] [place] [address] Harmony Wiseman MD [address] [address] Visit for screening mammogram Social History Tobacco [...] AM EST Office Visit [facility] [address] [place] [address] Lacy Sanchez MD [address] [place] [address] documented as of this encounter Results * [...] There are scattered fibroglandular densities. POS - [id number] Narrative 05/05/2017 11:52 AM EST Full-field digital [...] There are scattered fibroglandular densities. POS - [id number] Harmony Wiseman MD IM MG EXAMS Final Result documented in this encounter Visit Diagnoses Diagnosis Visit for screening mammogram Visit for screening mammogram documented in this encounter Care Teams Zipper Sewing Machine Operator Relationship Specialty Start Date End Date Samy Robles MD [address] [place] [address] PCP - General 10/29/13 documented as of this encounter Additional Source Comments The information contained in this document represents components of the legal health record. It is not the complete legal health record.[facility]
[2025-03-21 14:48] VITALS: BP 122/84; PULSE 79; RESP 14; O2SAT 98; BMI 21.2
== END 2025-03-21 15:22 | disposition home or self-care (01) ==
PROVIDERS: PCP Internal Medicine; Visit Provider Internal Medicine
DX: Z00.00 Encounter for general adult medical examination without abnormal findings (principal); I10 Essential (primary) hypertension; E04.1 Nontoxic single thyroid nodule; R35.1 Nocturia; M81.0 Age-related osteoporosis without current pathological fracture